=== PATIENT | male | born 1995 | race Caucasian/White ===

== ENCOUNTER 2024-03-31 15:32 | Outpatient (AMB) | payer OTHER, SELFPAY ==
[2024-03-31 15:36] VITALS: BP 140/80; PULSE 93; O2SAT 99; BMI 38.8
--- NOTE | 2024-03-31 15:36 | MHC.PC.OV ---
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 Patient was last seen by SADIE in the office January 2023 and referred to General surgery for umbilical hernia. Today he tells us he has not follow up with General surgery and would like to be referred again. He has no acute concerns today. [facility] Social History Housing: House Patient Tobacco Use Status: Never used Tobacco service: No Current occupational status: employed Cognitive needs: No Hearing needs: No Vision needs: No Questionnaire PHQ-9 Over the last 2 weeks, how often have you been bothered by any of the following problems? 1. Little interest or pleasure in doing things: not at all 2. Feeling down, depressed, or hopeless: not at all 3. Trouble falling or staying asleep, or sleeping too much: several days 4. Feeling tired or having little energy: not at all 5. Poor appetite or overeating: not at all 6. Feeling bad about yourself - or that you are a failure or have let yourself or your family down: not at all 7. Trouble concentrating on things, such as reading the newspaper or watching television: nearly every day 8. Moving or speaking so slowly that other people could have noticed. Or the opposite - being so fidgety or restless that you have been moving around a lot more than usual: not at all 9. Thoughts that you would be better off or of hurting yourself in some way: not at all Total score: 4 Depression Screening Interpretation: Negative Depression Screening Done: Yes 31124 - PHQ-9 Billing: Yes Source: Developed by Drs. Houston Alexandre, Meliza Castillo, Will Ruiz and colleagues, with an educational kirti from [employer]. Thrive Questionnaire Date Thrive assessed: 03/31/24 I am a: Patient What is your living situation today?: I have a steady place to live Within the past 12 months, did the food you bought not last and you didn't have the money to get more?: Never true Within the past 12 months, did you worry whether your food would run out before you got money to buy more?: Sometimes True Do you have trouble paying for medicines?: No Do you have trouble getting transportation to medical appointments?: No Do you have trouble paying your heating and electricity bill?: No Do you have trouble taking care of your child, family member or friend?: No Do you have trouble with day-to-day activities such as bathing, preparing meals, shopping, managing finances, etc.?: No Are you currently unemployed and looking for a job?: No Are you interested in more education?: No Please select the resources that you would like help with: None Currently or been in a relationship where the following occur: No concerns reported THRIVE Score: 1 AUDIT C Alcohol Use Questionnaire (AUDIT-C) 1. How often do you have a drink containing alcohol?: 2-4 times a month 2. How many drinks containing alcohol do you have on a typical day when you are drinking?: 3 or 4 3. How often do you have six or more drinks on one occasion?: Less than monthly Total Score: 4 AURORA-7 AMB Questionnaire AURORA-7 Date AURORA - 7 assessed: 03/31/24 Feeling nervous, anxious, or on edge: 0 = Not at all Not being able to stop or control worryin = Several days Worrying too much about different things: 1 = Several days Trouble relaxin = Not at all Being so restless that it is hard to sit still: 1 = Several days Becoming easily annoyed or irritable: 1 = Several days Feeling afraid as if something awful might happen: 0 = Not at all Total AURORA-7 score (0-4 normal; 5-9 mild; 10-14 moderate; 15-21 severe): 4 Source: Developed by Drs. Houston Alexandre, Meliza Castillo, Will Ruiz and colleagues, with an educational kirti from [employer]. AURORA-7 Assessment Billing AURORA-7 Assessment Tool: AURORA-7 Assessment 11069 Review of Systems Const Denies body aches, Denies fatigue, Denies fever(s), Denies frequent falls, Denies headache(s) and Denies weakness Eyes Reports no additional complaints and Denies change in vision ENT Denies dysphagia, Denies dizziness, Denies facial pain, Denies headache(s), Denies nasal congestion and Denies odynophagia Card Denies chest pain, Denies syncope, Denies irregular heart rhythm, Denies leg edema, Denies lightheadedness and Denies dyspnea Resp Denies cough and Denies dyspnea GI Denies constipation, Denies dysphagia, Denies dyspepsia, Denies diarrhea, Denies nausea, Denies odynophagia and Denies vomiting Denies dysuria, Denies urinary frequency, Denies urinary hesitancy and Denies urinary urgency Musc Denies back pain and Denies myalgias Skin/Breast Reports system reviewed and no additional complaints, except as documented Neuro Denies dizziness, Denies syncope, Denies frequent falls, Denies headache(s) and Denies weakness Psych Reports no additional complaints Endo Denies fatigue Physical exam (Primary Care) Vital Signs: Last Vital Signs Pulse 93 03/31/24 15:36 BP 138/78 03/31/24 16:03 Pulse Ox 99 03/31/24 15:36 Oxygen Delivery Method Room Air 03/31/24 15:36 BMI result Body Mass Index 38.8 Tobacco/Smoking Status: Tobacco use Status Tobacco use date assessed 03/31/24 03/31/24 15:37 Patient Tobacco Use Status Never used Tobacco 03/31/24 15:37 PHQ-9: PHQ-9 Score PHQ-9: Total score 4 03/31/24 15:43 Depression Screening Interpretation: Negative Thrive Assessment: Date of Thrive Assessment Date Thrive assessed 03/31/24 03/31/24 15:37 Currently or been in a relationship where the following occur: No concerns reported Const General: cooperative, healthy appearing, comfortable and no acute distress Orientation/consciousness: patient oriented x3 HENNV Head: Yes normocephalic Ears: hearing grossly normal bilaterally, external ears normal, TM's normal bilaterally and EAC's normal General nose exam: Normal external nose present Face and sinus: Yes normal facial exam and Yes sinuses nontender Mouth: Normal oral and palatal mucosa present and tongue normal Throat: Yes posterior oropharynx normal Eyes General: appearance normal, both eyes and all related structures Conjunctivae: conjunctivae normal Pupils: Equal, round and reactive pupils present EOM: EOMs intact bilaterally and No Nystagmus present Neck Neck: Yes normal visual inspection, Yes full ROM and Yes no lymphadenopathy Chest Chest palpation & inspection: normal inspection of the chest Resp Effort & Inspection: normal respiratory effort Auscultation: clear to auscultation bilaterally, no crackles, no rales, no rhonchi, no wheezes and breath sounds present Cardio Rate: regular rate Rhythm: regular rhythm Peripheral pulses: radial pulses present and dorsalis pedis present GI Inspection: Yes normal to inspection and No Abdominal wall edema Palpation (GI): Soft to palpation, not firm, nontender and Hernia present (Nontender, nonerythematous) umbilical Auscultation: normal bowel sounds Rectal Exam - Male: Yes deferred General: Yes no CVA tenderness Back/Spine/Pelvis Back: no CVA tenderness Skin General skin exam: no rashes or lesions noted Neuro General: patient oriented x3 Cranial nerves: Yes Equal, round and reactive pupils present, Yes Midline tongue present, Yes Ability to bilaterally elevate shoulders present and No Nystagmus present Gait exam (Neuro): Normal gait present Extrem General: Yes normal to inspection, Yes full ROM, No no pedal edema and No edema Psych Speech and movement: Normal speech and movement present Affect: normal affect Insight: Good insight present (Psych) Judgement: Good judgement present (Psych) Office Procedures Flu Questionnaire Does the patient have a severe egg allergy?: No Does the patient have severe life threatening allergies?: No Does the patient have a fever or illness today?: No Has the patient ever had Guillain-[place] Syndrome?: No Has the patient ever had any past reaction to a flu shot?: No Immunizations Fluarix Triv 2761-0820 (PF) 45 mcg (15 mcg x 3)/0.5 mL IM syringe Performing Provider: Zulema Mcclure PA-C Performing Location[place] [facility] [place] [facility] Administered by: HOLLIE Moy on 03/31/24 16:09 Dose Route Admin Location Dispensed Lot Number Expiration Date 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 0.5 mL IM Left Deltoid 0.5 mL [id number] 12/26/24 [id number] Commtimize VIS Given Date VIS Provided VIS Publication Date 03/31/24 Single Vaccine 21 Eligibility Eligibility Date Funding Source Not [facility] Eligible 03/31/24 Private Coding Level of Care Code Est Pt Prev Care 18-39y(34248) Diagnoses Annual physical exam Z00.00 Umbilical hernia K42.9 Additional Codes AURORA-7 Assessment Billing - AURORA-7 Assessment Tool: AURORA-7 Assessment 44611 ([id number]) Assessment & Plan Assessment & Plan (1) Annual physical exam: Code(s): Z00.00 - Encounter for general adult medical examination without abnormal findings Category: Medical Plan: Patient is up-to-date on all recommended routine screenings and vaccinations for his age. Flu shot was given today in the office and patient was referred for updated blood work. Follow up in 1 year or sooner if new problems arise. (2) Umbilical hernia: Code(s): K42.9 - Umbilical hernia without obstruction or gangrene Category: Medical Plan: Patient has umbilical hernia which has been present for several years and we will occasionally ache but denies any pain or redness around the hernia site. Hernia is soft and nontender on exam and easily reducible. Referral placed for General surgery for possible repair. Plan This note was constructed using voice recognition software. While every effort has been made to ensure accuracy and choir leader, still areas may have been included sometimes these areas may affect the content or meeting of the given symptoms. Total time spent caring for the patient today was 30 minutes. This includes time spent before the visit reviewing the chart, time spent during the visit, and time spent after the visit and documentation. Orders: Orders Vitamin D 25-OH (D2 and D3) Today Z00.00 - Encounter for general adult medical examination without abnormal findings Free T4 (Free Thyroxine) Today Z00.00 - Encounter for general adult medical examination without abnormal findings Lipid Panel Today Z00.00 - Encounter for general adult medical examination without abnormal findings Influenza [id number] Immunization Today Z23 - Encounter for immunization Comprehensive Met. Panel Today Z00.00 - Encounter for general adult medical examination without abnormal findings Complete Blood Count Auto Diff Today Z00.00 - Encounter for general adult medical examination without abnormal findings TSH reflex Free T4 Today Z00.00 - Encounter for general adult medical examination without abnormal findings Vitamin B12 and Folate Today Z00.00 - Encounter for general adult medical examination without abnormal findings Referrals General Surgery Referral K42.9 - Umbilical hernia without obstruction or gangrene
[2024-03-31 16:03] VITALS: BP 138/78
== END 2024-03-31 16:15 | disposition home or self-care (01) ==
PROVIDERS: PCP Nurse Practitioner Family
DX: Z00.00 Encounter for general adult medical examination without abnormal findings (principal); K42.9 Umbilical hernia without obstruction or gangrene; Z23 Encounter for immunization

== ENCOUNTER → 2024-03-31 15:32 | Outpatient (BNVA) | payer OTHER, SELFPAY | PROVIDERS: PCP Nurse Practitioner Family | DX: Z00.00 Encounter for general adult medical examination without abnormal findings (principal); K42.9 Umbilical hernia without obstruction or gangrene; Z23 Encounter for immunization | CPT/HCPCS: 90471; 90656; 96127 ==

== ENCOUNTER 2024-04-12 12:52 | Outpatient (AMB) | payer OTHER, SELFPAY ==
--- NOTE | 2024-04-12 13:16 | A.OFFVIS_ITS ---
Vital Signs 04/12/24 13:19 Height 5 ft 8 in Weight 256 lb BMI 38.9 BP 144/84 H Blood Pressure Location Rt brachial Position Sitting Pulse 79 Intake Visit Reasons: Umbilical hernia Intake Note: Patient referred for umbilical hernia. Present for 4yrs. Patient c/o: painful at times. Denies diarrhea, constipation, nausea. Allergies No Known Allergies Allergy (Verified 04/12/24 13:17) HPI Comments Details: Patient presents with a symptomatic enlarging umbilical hernia. He has had this for +years. His increasing in size. Patient is otherwise tolerating his diet. Having regular bowel habits. He does very heavy stress strenuous activities at work and he thinks this is where this happened. Because of progressive symptoms like to have it repaired. Chart was reviewed and patient evaluated. [facility] Social History Housing: House Patient Tobacco Use Status: Never used Tobacco service: No Current occupational status: employed Cognitive needs: No Hearing needs: No Vision needs: No Physical Exam Vital Signs: Last Vital Signs Pulse 79 04/12/24 13:19 BP 144/84 H 04/12/24 13:19 BMI result Body Mass Index 38.9 Chest Other: Chest breath sounds bilaterally, HS 1 in 2 GI Other: Patient was examined both supine and standing with Valsalva. Bilateral groin exam negative. Patient only has 1 testicle which he says he has been warm with. Abdomen corpulent, soft. Patient has a roughly 4 cm reducible umbilical hernia. Assessment & Plan Assessment & Plan (1) Umbilical hernia: Code(s): K42.9 - Umbilical hernia without obstruction or gangrene Category: Surgical Plan Risks, benefits, and alternatives of open umbilical hernia repair with mesh were reviewed with the patient included but not limited to bleeding, infection, recurrence, numbness, pain, scarring, bowel injury and the patient wished to proceed. All questions answered. Arrangements were made for this. Coding Level of Care Code New Pt Level 5 (03472) Diagnoses Umbilical hernia K42.9
[2024-04-12 13:19] VITALS: BP 144/84; PULSE 79; BMI 38.9
== END 2024-04-12 13:31 | disposition home or self-care (01) ==
PROVIDERS: PCP Nurse Practitioner Family; Visit Provider Surgery
DX: K42.9 Umbilical hernia without obstruction or gangrene (principal)
CPT/HCPCS: 99204

== ENCOUNTER 2024-06-02 05:50 | Day surgery (SDC) | payer OTHER, SELFPAY ==
[2024-05-31 16:15] VITALS: BMI 38.9
[2024-05-31 16:34] VITALS: BMI 38.0
--- NOTE | 2024-06-01 10:01 | P.HPSUR_ITS ---
Pre-Procedural Eval Section A - 24 Hr Update-Section A only Date of Service: 06/02/24 The patient is an INPATIENT: No Changes since office visit: No Cold of Flu in the past 2 weeks, No New Medical Problems, No Changes in Medication and No Patient answered all questions Section B - Complete if H&P > 30 days Chief Complaint: Umbilical hernia without obstruction or gangrene Allergies: Allergies Allergy/AdvReac Type Severity Reaction Status Date / Time No Known Allergies Allergy Verified 05/31/24 16:36 Review of Systems Sugical H&P ROS: Negative: Constitution, Cardiovascular, Respiratory, Neurological, Psychiatric, Hem-Onc, Allergic/Immunologic, Gastrointestinal, Genitourinary, Musculoskeletal, Integumentary, Endocrine and Ey es/Ears/Nose/Throat Exam Surgical H&P Exam: Normal: HEENT, Normal: Heart, Normal: Lungs, Normal: Extremities, Normal: Abdomen, Normal: Skin and Normal: Neurological Plan I have reviewed the history and physical and performed a pertinent physical examination on my patient. No changes have occurred unless specified. Time Spent With Patient Time: Total time managing care of this patient today ____ minutes.
[2024-06-02 06:40] VITALS: BP 145/96; PULSE 76; RESP 14; TEMP 36.6; O2SAT 95
[2024-06-02] MEDS: Lactated Ringers 1,000 ML 100 ML IVCONT (06:42)
[2024-06-02 06:47] VITALS: BMI 36.9
--- NOTE | 2024-06-02 07:25 | HO.ANESPROP2 ---
Documented by User: Ofe Bishop NP 05/31/24 15:28 HPI - Anesthesia Eval Consult details Narrative: 28yo M for Open Hernia Umbilical Reducible with mesh PMFSH Active Problems Active Problems: All Active Problems Annual physical exam (Acute) Umbilical hernia (Acute) Past Medical History Medical History (Updated 05/31/24 @ 16:37 by Faina Casarez, EVA) Current smoker on some days LVE (left ventricular enlargement) Surgical History Surgical History (Updated 05/31/24 @ 16:38 by Faina Casarez RN) No pertinent past surgical history Social History Social History Housing: House Are you a primary home care attendant to a significant other at home: No Do you presently have visiting nurse or other home services: No Patient Tobacco Use Status: Current someday Tobacco user Tobacco use type: Cigarette Use of substances other than those prescribed or required for medical reasons: No Have you been hit, kicked, punched, or otherwise hurt by someone within the past year? If so, by whom?: No Are you DNR?: No Advance Directives: No Advance Directives Information Provided: Yes Advance Directives on File: No Recently lost weight without trying: No Nutrition Risks: No Nutritional Risk Poor oral hygiene: No service: No Current occupational status: employed Cognitive needs: No Hearing needs: No Vision needs: No Meds Allergies Allergy/AdvReac Type Severity Reaction Status Date / Time No Known Allergies Allergy Verified 06/02/24 06:20 Home Medications ?Medication ?Instructions ?Recorded ?Confirmed ?Last Taken ?Type No Known Home Meds 03/31/24 05/31/24 Unknown History Assessment and Plan Assessment Anesthesia Assessment: Chart Reviewed Documented by User: Darline Mcclendon DO 06/02/24 07:45 HPI - Anesthesia Eval Consult details Narrative: 28yo M for Open Hernia Umbilical Reducible with mesh. Occasional smoker. PMFSH Past Medical History Medical History (Updated 05/31/24 @ 16:37 by Faina Casarez RN) Current smoker on some days LVE (left ventricular enlargement) Family History Family history of problems with anesthesia: No Surgical History Surgical History (Updated 05/31/24 @ 16:38 by Faina Casarez RN) No pertinent past surgical history History of Problems with Anesthesia: No (never had surgery) Social History Social History Housing: House Are you a primary home care attendant to a significant other at home: No Do you presently have visiting nurse or other home services: No Patient Tobacco Use Status: Current someday Tobacco user Tobacco use type: Cigarette Use of substances other than those prescribed or required for medical reasons: No Have you been hit, kicked, punched, or otherwise hurt by someone within the past year? If so, by whom?: No Are you DNR?: No Advance Directives: No Advance Directives Information Provided: Yes Advance Directives on File: No Recently lost weight without trying: No Nutrition Risks: No Nutritional Risk Poor oral hygiene: No service: No Current occupational status: employed Cognitive needs: No Hearing needs: No Vision needs: No Meds Allergies Allergy/AdvReac Type Severity Reaction Status Date / Time No Known Allergies Allergy Verified 06/02/24 06:20 Home Medications ?Medication ?Instructions ?Recorded ?Confirmed ?Last Taken ?Type No Known Home Meds 03/31/24 05/31/24 Unknown History Exam Exam Date and Time: 06/02/24 0725 Height,Weight and Vital Signs: Height 5 ft 9 in Weight 113.398 kg Vital Signs Temperature 97.8 F 06/02/24 06:40 Pulse Rate 76 06/02/24 06:40 Respiratory Rate 14 06/02/24 06:40 Blood Pressure 145/96 H 06/02/24 06:40 Pulse Oximetry 95 06/02/24 06:40 Oxygen Delivery Method Room Air 06/02/24 06:40 Temperature 97.8 F 06/02/24 06:40 Pulse Rate 76 06/02/24 06:40 Respiratory Rate 14 06/02/24 06:40 Blood Pressure 145/96 H 06/02/24 06:40 Pulse Oximetry 95 06/02/24 06:40 Oxygen Delivery Method Room Air 12/05/24 06:40 Airway Mallampati Class: II TM Dist: >3cm Neck ROM: Full Loose/Missing/Broken Teeth: No (patient denies any loose or broken teeth) Heart: S1S2 Lungs: CTAB Assessment and Plan Assessment Anesthesia Assessment: Anesthesia Plan Discussed and Chart Reviewed Final Anesthetic Review Family History of Problems with Anesthesia: No History of Problems with Anesthesia: No (never had surgery) NPO: Yes ASA Class: II Final Preanesthetic Review: No Changes in Pt Med Stat, Meds/Allgs Chart Reviewed, Consent Obtained/Reviewed and Anes Risks/Benef Reviewed Patient Risk: Low Procedure Risk: Low Anesthetic Plan Anesthetic Plan: GA and Agree w/ Assess. and Plan Disposition: Standard PACU
[2024-06-02 08:32] VITALS: BP 136/76; PULSE 70; RESP 18; TEMP 36.4; O2SAT 95
[2024-06-02 08:35] VITALS: BP 130/86; PULSE 72; RESP 18; O2SAT 95
[2024-06-02 08:40] VITALS: BP 137/79; PULSE 72; RESP 18; O2SAT 96
--- NOTE | 2024-06-02 08:43 | W.PM.OPN ---
Operative Note Operative Note Date of Service: 06/02/24 Narrative: Preoperative diagnosis: [] Very large incarcerated umbilical hernia Postop diagnosis: [] The same Procedure [] open repair of incarcerated umbilical hernia with Bard mesh Surgeon: [] Franc Marketing Database Coordinator: [] Javier Type of Anesthesia: [] General Indication for surgery: Roughly 6 cm incarcerated umbilical hernia with omental contents. Very corpulent abdomen Findings: [] Patient brought to the operating room, placed on operative table supine position, after an adequate level of general anesthesia was induced, the patient's abdomen was prepped and draped in usual sterile fashion. Using an infra umbilical curvilinear incision, this carried down through skin, subcutaneous tissue, were a very large multi lobulated hernia sac was circumferentially dissected from the posterior aspect of the umbilicus in the surrounding soft tissues down through the fascia. Sac was opened where sac and incarcerated omental contents were from the surrounding fascia margins. Omentum was amputated using clamps clamped, cut, and tied with 2-0 Vicryl ties. Sac was amputated using Bovie. Fascia margins were circumferentially cleared. Inappropriately sized Bard dual mesh was placed in the defect and the superficial layer of the mesh was circumferentially sutured to the surrounding fascia using a combination of simple and you sutures of interrupted 0 Ethibond. Completion of the procedure, mesh was in good position with no gaps or tension. Wound was irrigated, secured hemostasis, and closed in the following manner; posterior aspect of the umbilicus was tacked to the wound floor using interrupted 3-0 Vicryl sutures. Skin was closed using interrupted inverted dermal 3-0 Vicryl sutures followed by Steri-Strips and sterile dressings. Wound was infiltrated at the beginning at the end of the case with 0.5% Marcaine/1% lidocaine. Sponge, needle, and instrument counts reported correct. Patient tolerated the procedure well and emerged from anesthesia stable condition. EBL minimal. Abdominal binder placed at completion.
[2024-06-02 08:45] VITALS: BP 123/74; PULSE 72; RESP 18; O2SAT 96
[2024-06-02 09:01] VITALS: BP 148/94; PULSE 72; RESP 18; TEMP 36.6; O2SAT 97
== END 2024-06-02 09:44 | disposition home or self-care (01) ==
PROVIDERS: Visit Provider Surgery
PROC: (CPT 49594; principal; 2024-06-02 07:30)
DX: K42.0 Umbilical hernia with obstruction, without gangrene (principal); E65 Localized adiposity; I51.7 Cardiomegaly; F17.210 Nicotine dependence, cigarettes, uncomplicated
CPT/HCPCS: 49594; 88304; C1781; J0690; J1100; J1885; J2003; J2250; J2405; J2704; J2795; J3010

== ENCOUNTER → 2024-06-02 05:50 | Outpatient (BNV) | payer OTHER, SELFPAY | PROVIDERS: Visit Provider Surgery | DX: K42.0 Umbilical hernia with obstruction, without gangrene (principal) | CPT/HCPCS: 49594 ==

== ENCOUNTER 2024-06-13 09:23 | Outpatient (AMB) | payer OTHER, SELFPAY ==
--- NOTE | 2024-06-13 09:25 | MHC.OFFVIS ---
Intake Visit Reasons: S/P Open reducible umbilical hernia w/mesh Intake Note: Patient here s/p open reducible umbilical hernia w/mesh. Reports incisions healing well. Patient c/o: no concerns. No longer taking rx pain meds. Bus Assistant Required: No Accompanied by: Self / Same As Patient Allergies No Known Allergies Allergy (Verified 06/13/24 09:27) HPI Comments Details: Patient presents for follow-up status post umbilical hernia repair. He is doing quite well. He is tolerating a diet. Having regular bowel habits. He is slowly but steadily increasing his activity level. He is to return to work with light duty. He has minimal incisional discomfort. [facility] Medical History (Updated 06/10/24 @ 09:14 by HOLLIE Funk) Current smoker on some days LVE (left ventricular enlargement) Surgical History (Updated 06/13/24 @ 09:38 by Sudheer Bruner MD) Umbilical hernia (06/02/24) No pertinent past surgical history Social History Housing: House Are you a primary child care provider to a significant other at home: No Do you presently have visiting nurse or other home services: No Patient Tobacco Use Status: Current someday Tobacco user Tobacco use type: Cigarette service: No Current occupational status: employed Cognitive needs: No Hearing needs: No Vision needs: No Physical Exam GI Other: Abdomen corpulent, soft, benign. Incision is clean dry and intact. Patient has contact dermatitis most likely from his dressings. No evidence of any infection. Assessment & Plan Assessment & Plan (1) Postop check: Code(s): Z09 - Encounter for follow-up examination after completed treatment for conditions other than malignant neoplasm Category: Surgical (2) Status post umbilical hernia repair, follow-up exam: Code(s): Z09 - Encounter for follow-up examination after completed treatment for conditions other than malignant neoplasm Category: Surgical Plan Patient was been given local wound instructions, including avoiding any bandages were tape over the Bruna of incisional area. If this dermatitis progresses or does not resolve in the next week to 2 weeks time, he has been instructed to contact the office or he will otherwise follow-up p.r.n.. All questions answered. Coding Level of Care Code Global (45893) Diagnoses Postop check Z09 Status post umbilical hernia repair, follow-up exam Z09
== END 2024-06-13 09:33 | disposition home or self-care (01) ==
PROVIDERS: PCP Nurse Practitioner Family; Visit Provider Surgery
DX: Z09 Encounter for follow-up examination after completed treatment for conditions other than malignant neoplasm (principal)
CPT/HCPCS: 99212